=== PATIENT | male | born 1970 | race Hispanic/Latino ===

== ENCOUNTER 2021-05-12 12:41 | Emergency (ER) | payer OTHER ==
[~2021-05-12] VITALS: Ht 175.3 cm; Wt 63.5 kg
[~2021-05-12 12:41] MED LIST: GENVOYA TABLET1 EACH PO; IBU600 MG PO
--- OUTSIDE RECORDS SUMMARY | 2021-05-12 14:02 | XMS ---
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 Tamanna VISIT COUNT (12 MO.) 2 [facility] TOTAL 2 NOTE: Visits indicate total known visits. ED/UCC VISIT TRACKING (12 MO.) 05/12/2021 12:42 [facility] TYPE: Emergency COMPLAINT: - L SIDE L LEG PAIN 05/12/2021 09:28 [facility] TYPE: Emergency COMPLAINT: - L SIDE/LEG PAIN INPATIENT VISIT TRACKING (12 MO.) No inpatient visits to display in this time frame [email or web address]
[2021-05-12] MEDS ORDERED: CRUTCH1 EACH (20:05)
== END 2021-05-12 20:20 | disposition home or self-care (01) ==
LOC: ED 12:41
DX: S70.02XA Contusion of left hip, initial encounter (principal); B20 Human immunodeficiency virus [HIV] disease; F17.200 Nicotine dependence, unspecified, uncomplicated; W19.XXXA Unspecified fall, initial encounter
CPT/HCPCS: 72100; 73502; 99283-25

== ENCOUNTER 2021-05-14 11:19 | Emergency (ER) | payer OTHER ==
[~2021-05-14] VITALS: Ht 175.3 cm; Wt 63.5 kg
[~2021-05-14 11:19] MED LIST changes: +CRUTCH1 EACH
--- OUTSIDE RECORDS SUMMARY | 2021-05-14 11:26 | XMS ---
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 - 2 Visits in 30 Days CARE PROVIDERS FAHAD ROD [facility] Current PHONE: Unknown [facility] 05/13/2021-Current PHONE: Unknown Babs has no Care Guidelines for this patient. Tamanna VISIT COUNT (12 MO.) [address] [place] [address] TOTAL 3 NOTE: Visits indicate total known visits. ED/UCC VISIT TRACKING (12 MO.) 05/14/2021 11:20 [facility] TYPE: Emergency COMPLAINT: - L WRIST LAC 05/12/2021 12:42 [facility] TYPE: Emergency COMPLAINT: - L SIDE L LEG PAIN/ NO INJ 05/12/2021 09:28 [facility] [place] TYPE: Emergency COMPLAINT: - L SIDE/LEG PAIN INPATIENT VISIT TRACKING (12 MO.) No inpatient visits to display in this time frame [email or web address]
--- NOTE | 2021-05-15 10:29 | EKG ---
[facility] [address] [facility] [place], [place] [address] Signed Normal sinus rhythm Left bundle branch block Abnormal ECG No previous ECGs available Confirmed by DES OWNE DO ([id number]) on 05/15/2021 10:28:52 AM Electronically Signed By: DES OWEN DO 05/15/21 1029 PATIENT NAME: THANIAARLIN Electrocardiogram DATE OF : 66 PHYSICIAN: DES OWEN DO REPORT #: [id number] REPORT IS CONFIDENTIAL AND NOT TO BE RELEASED WITHOUT AUTHORIZATION
== END 2021-05-16 09:10 | disposition short-term general hospital (02) ==
LOC: ED 11:19
DX: S61.512A Laceration without foreign body of left wrist, initial encounter (principal); X78.8XXA Intentional self-harm by other sharp object, initial encounter; J45.909 Unspecified asthma, uncomplicated; Z21 Asymptomatic human immunodeficiency virus [HIV] infection status; F17.200 Nicotine dependence, unspecified, uncomplicated; Z88.8 Allergy status to other drugs, medicaments and biological substances; Z91.018 Allergy to other foods; Z79.899 Other long term (current) drug therapy; Z20.822 Contact with and (suspected) exposure to COVID-19
CPT/HCPCS: 12001; 80053; 81001; 84443; 85025; 93005; 93010; 99285-25; C9803; G0480; J7030; U0003